=== PATIENT | female | born 1945 | race Caucasian/White ===

== ENCOUNTER 2017-12-04 09:29 | Outpatient (CLI) | payer MEDICARE | END 2017-12-04 09:30 | disposition home or self-care (01) | LOC: BICMAMMO 09:29 | PROVIDERS: ATTEND Family Medicine | DX: Z12.31 Encounter for screening mammogram for malignant neoplasm of breast (principal) | CPT/HCPCS: 77063; 77067 ==

== ENCOUNTER 2017-12-15 12:39 | Emergency (ER) | payer MEDICARE | END 2017-12-15 13:39 | disposition home or self-care (01) | LOC: SCSER 12:39 | DX: I10 Essential (primary) hypertension (principal); K21.9 Gastro-esophageal reflux disease without esophagitis; E78.5 Hyperlipidemia, unspecified; Z79.899 Other long term (current) drug therapy | CPT/HCPCS: 99282 ==

== ENCOUNTER 2018-01-08 08:14 | Outpatient (CLI) | payer MEDICARE | END 2018-01-08 08:15 | disposition home or self-care (01) | LOC: BICMAMMO 08:14 | PROVIDERS: ATTEND Family Medicine | DX: N63.20 Unspecified lump in the left breast, unspecified quadrant (principal) | CPT/HCPCS: 76642; 77065; G0279 ==

== ENCOUNTER 2018-05-26 13:45 | Inpatient (IN) | payer MEDICARE ==
[~2018-05-26 13:45] MED LIST: Iopamidol 370 76% 100 ML VIAL ONE
[2018-05-26 15:04] LABS: Bilirubin Negative (Negative); Blood, Urine Negative (Negative); Clarity Clear (Clear); Glucose, Urine (Dipstick) Negative (Negative); Leukocyte Negative (Negative); Nitrite Negative (Negative); Protein, Urine (Dipstick) Negative (Neg-Trace); Urobilinogen 0.2 mg/dL (0.2-1.0)
[2018-05-26 15:31] LABS: #Basophils 0.1 thou/uL (0.0-0.2); #Eosinphils 0.1 thou/uL (0.0-0.7); #Lymphocytes 2.2 thou/uL (1.20-3.40); #Monocytes 0.5 thou/uL (0.11-0.59); #Neutrophils 4.3 thou/uL (1.40-6.50); %Basophils 1.4 % (0.0-1.0); %Eosinophils 1.3 % (0.0-10.0); %Lymphocytes 30.4 % (21.0-51.0); %Monocytes 7.3 % (0.0-10.0); %Neutrophils 59.6 % (42.0-75.0); Hemoglobin 12.5 g/dL (12.0-16.0); Mean Corpuscular HGB CONC 35.5 g/dL (32.0-36.0); Mean Corpuscular Hemoglobin 30.7 pg (27.0-31.0); Mean Corpuscular Volume 86.3 fL (78.0-98.0); Mean Platelet Volume 7.6 fL (7.4-10.4); Platelet Count 276 thou/uL (130-400); RBC Distribution Width 10.5 % (11.5-14.5); Red Blood Cell (RBC) Count 4.09 mill/uL (4.20-5.40); White Blood Cell (WBC) Count 7.2 thou/uL (4.8-10.8)
[2018-05-26 15:47] LABS: ALT (SGPT) 14 U/L (8-55); AST (SGOT) 22 U/L (5-34); Alkaline Phosphatase 59 U/L (40-150); Anion Gap 13 mmol/L (10-20); BUN (Urea Nitrogen) 12 mg/dL (9.8-20.1); Bilirubin, Total 0.4 mg/dL (0.2-1.2); Calc. Creatinine Clearance 0 mL/min (70-130); Calcium 9.6 mg/dL (7.8-10.44); Carbon Dioxide 24 mmol/L (23-31); Chloride 106 mmol/L (98-107); Estimated GFR-MDRD 63; Globulin 2.8 g/dL (2.4-3.5); Glucose 104 mg/dL (83-110); Lipase 24 U/L (8-78); Potassium 3.9 mmol/L (3.5-5.1); Protein, Total 6.8 g/dL (6.0-8.3); Sodium 139 mmol/L (136-145)
--- NOTE | 2018-05-26 15:49 | RAD ---
CHEST 1 VIEW ABDOMEN 2 VIEWS: HISTORY: Chest and abdomen pain. FINDINGS: Cardiac silhouette and pulmonary vasculature are unremarkable. Mediastinum is midline. No confluent airspace consolidation or evidence of free subdiaphragmatic gas. Gas and stool are apparent within the colon. Nondilated gas-filled loops of small bowel are present within the upper abdomen with air fluid level slightly differential on the upright view. No evidence of free subdiaphragmatic gas. Opaque coils and sutures are evidence of postoperative changes throug hout the abdomen. IMPRESSION: Postoperative changes. Nonspecific bowel gas pattern. POS: [facility]
[2018-05-26] MEDS ORDERED: Ondansetron HCl/PF 4 MG/2 ML Vial ONE ×2 (15:55→22:59)
--- NOTE | 2018-05-26 16:06 | ULT ---
RIGHT UPPER QUADRANT ULTRASOUND: 05/26/18 HISTORY: Abdominal pain. FINDINGS: The liver, pancreas, and right kidney appear normal. The gallbladder is contracted and cannot be satisfactorily evaluated. The patient states having a asim l before coming to the Emergency Room. The common duct measures 7 mm in diameter. No free fluid is seen in Dorado's pouch. IMPRESSION: Contracted gallbladder. Recommend repeating the exam in a fasting state. POS: [facility]
[2018-05-26] MEDS ORDERED: hydrALAZINE 20 MG/ML VIAL SLOW IVP PRN (19:26)
[2018-05-26] MEDS ORDERED: Lorazepam 2 MG/ML VIAL SLOW IVP PRN (19:26)
[2018-05-26] MEDS ORDERED: Morphine 4 MG/ML Carpuject IVP PRN (19:26)
[2018-05-26] MEDS ORDERED: Ketorolac Tromethamine 30 MG/ML VIAL IVP PRN (19:29)
[2018-05-26] MEDS ORDERED: Acetaminophen 1,000 MG in Premix Bag 1 BAG IVPB PRN (19:29)
[2018-05-26] MEDS ORDERED: cefOXitin 2 GM in Sodium Chloride 0.9% 100 ML IVPB SCH (19:30)
[2018-05-26] MEDS ORDERED: Acetaminophen 1,000 MG in Premix Bag 1 BAG IVPB SCH (19:30)
[2018-05-26] MEDS ORDERED: Ketorolac Tromethamine 30 MG/ML VIAL IVP SCH (19:30)
--- NOTE | 2018-05-26 19:44 | CT ---
CT ABDOMEN AND PELVIS WITH CONTRAST: 05/26/18 HISTORY: Abdominal pain. Prior history of appendectomy, hysterectomy and colostomy reversal and breast reducti on. COMPARISON: CT abdomen from 2008. FINDINGS: Mild atelectasis in the lung bases. No pericardial effusion. Gallbladder is unremarkable. Liver is un remarkable. Spleen is unremarkable as well as the pancreas. Prior ventral hernia repair. Small volume free fluid in the pelvis. There is suture along the sigmoid colon. There is some mildly distended loops of small bowel in the mid abdomen measuring up to 3 cm. There is abrupt termination o f mildly distended to collapsed bowel in the left upper quadrant of the abdomen, series 2, image 40, through what appears to an internal hernia through mesentery. This is best seen on series 602, image 47. Small volume free fluid in the pelvis. Small volume fluid in the left pericolic gutter. Moderate degenerative changes of the lower lumbar spine. IMPRESSION: Evidence of low grade small bowel obstruction with transition point in the left upper quadrant of the abdomen through what appears to be an internal hernia best seen on coronal image 46-51. Small bowel loops measure up to 3 cm. There is also some small volume free fluid in the pelvis which may be seque la of congestive changes and loss of small bowel wall integrity. POS: [facility]
--- NOTE | 2018-05-26 19:49 | HP ---
DATE OF ADMISSION: 05/26/2018 HISTORY OF PRESENT ILLNESS: Kalli Falcon is a 72-year-old female who presents to [facility] Emergency Room for acute onset of abdominal pain. Dr. Murphy saw her. She is hemodynamically stable . She had been complaining of abdominal pain and bloating for the past month. This pain became more severe after eating. She had some pain in her back, but thinks that it is by lying on the emergency room bed. She does have occasional pain in her back. She has not had any vomiting, although had so me nausea when ingesting the oral contrast for the CAT scan. She initially had an ultrasound that re vealed a contracted gallbladder without significant findings. She subsequently had a plain abdominal x-rays, which were unrevealing. CAT scan of the abdomen and pelvis was obtained revealing suggestio n of an internal hernia with some mesenteric defect with some distended bowel loops. I was called at approximately 7:15 p.m. Her abdomen was soft and nontender, although slightly distended and tympani tic. NG tube was placed, evacuating approximately 800 mL of gastric contents. Her laboratory studie s were normal with a white count of 7, hemoglobin of 12 and her basic metabolic profile and liver fun ction tests that were normal. ALLERGIES: None. TOBACCO: None. ALCOHOL: None. MEDICATIONS: At home, Benadryl at bedtime, simvastatin 20 mg at bedtime, multivitamins daily, Mobic 7.5 mg a day, losartan 100 mg a day, hydrochlorothiazide 6.25 mg a day, glucosamine daily, calcium ca rbonate daily. PRIMARY CARE PHYSICIAN: Raul Bocanegra D.O. Note, colonoscopy 11/2016, Dr. Pham, normal. PAST SURGICAL HISTORY: Breast reduction surgery, total abdominal hysterectomy, bilateral salpingo-oo phorectomy at [facility]. She had a colon resection with colostomy and Trinity' s pouch for diverticulitis. She subsequently underwent colostomy reversal at [facility] by Dr. Santos. She subsequently suffered some wound problems from a suture sinus, having that explored , resecting the suture sinus and closing the fascial defect with permanent sutures. She subsequently presented with a large incisional hernia, undergoing laparoscopic mesh repair of a large sheet of me sh. Since that time, she has not had any problems with her hernia. On this occasion, she requests a nother surgeon. Nasal surgery for deviated septum. Breast reduction surgery as stated above. SOCIAL HISTORY: The patient is retired. Her is also retired. PAST MEDICAL HISTORY: Sleep apnea, elevated cholesterol. She has had problems with some loose stool s over the past year and has asked if this current problem she is experiencing could be related to th at. History of sleep apnea, uses a CPAP at home. History of hypertension and hyperlipidemia. FAMILY HISTORY: Noncontributory. REVIEW OF SYSTEMS: [place] point noncontributory. PHYSICAL EXAMINATION: VITAL SIGNS: Blood pressure 120/74, respiratory rate 18. HEAD, EARS, EYES, NOSE AND THROAT: Unremarkable. LUNGS: Clear to auscultation. CARDIAC: Regular rate and rhythm without murmur or gallop. ABDOMEN: Soft, mildly distended, nontympanitic. No incisional hernias appreciated. No guarding, no rebound, no tenderness whatsoever. EXTREMITIES: Unremarkable. No ankle edema. Palpable pulses. NEUROLOGIC: Intact. ASSESSMENT AND PLAN: 1. Abdominal pain. CAT scan suggesting internal hernia. We will plan admission to the hospital and NG tube to suction. IV fluids. Repeat abdominal x-rays in the morning. Plan laparoscopy, possible laparotomy under general anesthesia and TAP block tomorrow. Risk of infection, bleeding, reoperatio n, possibilities of a laparotomy with adhesiolysis, possibly requiring bowel resection discussed with the patient. Risk and benefits discussed, she consents. 2. Hypertension. 3. Sleep apnea.
[2018-05-27] MEDS: Lactated Ringer's 1,000 ML IV SCH ×5 (02:49→22:10)
[2018-05-27] MEDS: Enoxaparin Sodium 40 MG/0.4 ML SYRINGE SC SCH ×2 (02:49→21:29)
[2018-05-27] MEDS: Famotidine/PF 20 mg/2ml Vial SLOW IVP SCH ×3 (02:50→21:29)
[2018-05-27] MEDS: Ondansetron HCl/PF 4 MG/2 ML Vial IVP PRN ×2 (03:50→10:16)
[2018-05-27 08:20] VITALS: BMI 34.0
[2018-05-27] MEDS ORDERED: PHENYLEPHRINE-NS 100 MCG/ML 10 ML SYRINGE ONE (10:03)
[2018-05-27] MEDS ORDERED: Succinylcholine Chloride 20 MG/ML 10 ml SYRINGE FS ONE (10:03)
[2018-05-27] MEDS ORDERED: Lidocaine 1% PF 5 ML VIAL ONE (10:03)
[2018-05-27] MEDS ORDERED: PROPOFOL 200 MG/20 ML VIAL ONE (10:03)
[2018-05-27] MEDS ORDERED: Ondansetron HCl/PF 4 MG/2 ML Vial ONE (10:03)
[2018-05-27] MEDS ORDERED: Dexamethasone 20 MG/5 ML VIAL ONE (10:03)
[2018-05-27] MEDS ORDERED: Ketorolac Tromethamine 30 MG/ML VIAL ONE (10:03)
--- NOTE | 2018-05-27 11:53 | RAD ---
ABDOMEN TWO VIEWS: 05/27/2018 HISTORY: Follow up small bowel obstruction. COMPARISON: 05/26/2018 FINDINGS: A small amount of residual contrast is seen within the colon, related to recent CT examination. A ve ry small amount of contrast is seen within the region of the stomach, as well as in the urinary bladd er, also from prior contrast exam. A nasogastric tube is noted in place with the tip overlying the f undus of the stomach. Post surgical changes of the abdomen are again seen. There are a few mildly d ilated loops of small bowel seen within the left upper quadrant of the abdomen, which were also seen on the recent CT exam. Degenerative changes are seen in the spine. There is a rounded area of incre ased density overlying the right upper quadrant, which is probably related to contrast within the gal lbladder. IMPRESSION: 1. Dilated loops of small bowel within the left upper quadrant with suggestion of a differential air -fluid level. This may be related to a partial small bowel obstruction. There is contrast seen with in the colon. 2. Post surgical changes of the abdomen and pelvis. POS: [facility]
[2018-05-27] MEDS ORDERED: cefOXitin 2 GM VIAL ONE (15:07)
[2018-05-27] MEDS ORDERED: Sodium Chloride 0.9% 100 ML ONE (15:07)
[2018-05-27] MEDS ORDERED: Bupivacaine HCl 0.5%/Epinephrine 1:200,000/PF 30 ml Vial ONE (15:38)
[2018-05-27] MEDS ORDERED: Fentanyl 100 MCG/2 ML VIAL ONE ×2 (18:35→19:27)
[2018-05-27] MEDS ORDERED: Dexmedetomidine 200 MCG/2 ML VIAL ONE (18:39)
[2018-05-27] MEDS ORDERED: HYDROmorphone 2 MG/ML VIAL ONE (19:27)
[2018-05-27] MEDS ORDERED: Promethazine HCl 25 MG/ML VIAL SLOW IVP PRN (20:46)
[2018-05-27] MEDS ORDERED: Ondansetron HCl/PF 4 MG/2 ML Vial IVP PRN (20:46)
[2018-05-27] MEDS ORDERED: Promethazine HCl 25 MG/ML VIAL IM PRN (20:46)
[2018-05-27] MEDS ORDERED: HYDROmorphone 2 MG/ML VIAL SLOW IVP PRN (20:46)
[2018-05-27] MEDS: Carvedilol 6.25 MG TAB PO SCH (21:28)
[2018-05-27] MEDS: Acetaminophen 1,000 MG in Premix Bag 1 BAG IVPB SCH (23:23)
--- NOTE | 2018-05-28 05:13 | OP ---
PREOPERATIVE DIAGNOSIS: Small-bowel obstruction secondary to adhesions. POSTOPERATIVE DIAGNOSIS: Small-bowel obstruction secondary to adhesions. PROCEDURES: Laparoscopic video adhesiolysis, release of adhesive band and bowel obstruction, decompr ession. SURGEON: Yonatan Zendejas M.D. ANESTHESIA: General. Local 0.5% Marcaine with epinephrine, 20 mL PROCEDURE IN DETAIL: The patient was taken to the operating room where under general anesthesia, Fol ey catheter was placed at the beginning of the procedure, removed at the end. Abdomen was prepared w ith ChloraPrep, draped in routine fashion. Patient had a prior open colostomy reversal and mesh repa ir of a ventral hernia. Left lateral subcostal incision was made. Pneumoperitoneum to 50 mmHg was o btained with the Veress needle, replacing with a 5 port. I then placed video laparoscope and I could see within the abdominal cavity with the adhesions, I did find a right lower quadrant area before th e abdominal wall was free of adhesions and local anesthetic infiltrated into the skin and subcutaneou s tissue and 5 port placed. Video laparoscope moved to the right lower quadrant port. I then looked at the right lateral abdominal wall and there was an area of adhesion free area in the right subcost al area and an incision was made at the right subcostal and a 5-mm port was placed and LigaSure used for a laparoscopic adhesiolysis and another 5-mm port was placed in the lateral mid abdominal area, a nd then was able to take down adhesions, freeing adhesions from the mesh. Once this was accomplished , I could identify the transverse colon. There was dilated small bowel proximally. This was followe d up into the left upper quadrant where there was an adhesive band causing the bowel obstruction. Th is was taken down with the LigaSure release. I then looked in the right lower quadrant and identifie d the cecum. There were some adhesions in the pelvis. They were not obstructive and adhered to deco mpress small bowel. Small bowel was followed more proximally and these adhesions were not taken down . The small bowel was free of adhesions up to the dilated portion of the bowel which was decompressi ng due to the release of the adhesive obstructive band. At this point, good hemostasis was noted. I rrigant and pneumoperitoneum evacuated. All instruments were removed. All skin incisions were appro ximated with interrupted subdermal 4-0 Monocryl and DermaGlue applied.
[2018-05-28 05:22] LABS: #Lymphocytes 1.1 thou/uL (1.20-3.40); #Monocytes 0.3 thou/uL (0.11-0.59); #Neutrophils 9.1 thou/uL (1.40-6.50); %Basophils 0.1 % (0.0-1.0); %Eosinophils 0.1 % (0.0-10.0); %Lymphocytes 10.7 % (21.0-51.0); %Neutrophils 86.2 % (42.0-75.0); Hemoglobin 12.5 g/dL (12.0-16.0); Mean Corpuscular HGB CONC 34.3 g/dL (32.0-36.0); Mean Corpuscular Hemoglobin 32.1 pg (27.0-31.0); Mean Corpuscular Volume 93.5 fL (78.0-98.0); Mean Platelet Volume 7.6 fL (7.4-10.4); Platelet Count 238 thou/uL (130-400); RBC Distribution Width 11.7 % (11.5-14.5); White Blood Cell (WBC) Count 10.6 thou/uL (4.8-10.8)
[2018-05-28] MEDS: Acetaminophen 1,000 MG in Premix Bag 1 BAG IVPB SCH ×2 (05:22→14:54)
[2018-05-28 05:33] LABS: ALT (SGPT) 10 U/L (8-55); AST (SGOT) 18 U/L (5-34); Albumin 3.5 g/dL (3.4-4.8); Alkaline Phosphatase 55 U/L (40-150); Anion Gap 12 mmol/L (10-20); BUN (Urea Nitrogen) 12 mg/dL (9.8-20.1); Bilirubin, Total 0.5 mg/dL (0.2-1.2); Calc. Creatinine Clearance 73 mL/min (70-130); Calcium 8.8 mg/dL (7.8-10.44); Carbon Dioxide 24 mmol/L (23-31); Chloride 103 mmol/L (98-107); Estimated GFR-MDRD 63; Globulin 2.5 g/dL (2.4-3.5); Glucose 140 mg/dL (83-110); Potassium 3.7 mmol/L (3.5-5.1); Sodium 135 mmol/L (136-145)
[2018-05-28] MEDS: Lactated Ringer's 1,000 ML IV SCH ×2 (05:59→14:57)
[2018-05-28] MEDS ORDERED: traMADol HCl 50 MG TAB PO PRN ×2 (07:29)
[2018-05-28] MEDS ORDERED: Ibuprofen 600 MG TAB PO PRN (07:29)
[2018-05-28] MEDS ORDERED: Acetaminophen 500 MG TAB PO PRN (07:29)
[2018-05-28] MEDS: Famotidine/PF 20 mg/2ml Vial SLOW IVP SCH (08:47)
[2018-05-28] MEDS: Carvedilol 6.25 MG TAB PO SCH (08:48)
[2018-05-28] MEDS ORDERED: Losartan 25 MG TAB PO SCH (09:00)
[2018-05-28 09:14] VITALS: BP 147/71; TEMP 97.8
--- NOTE | 2018-05-28 13:37 | PRG ---
DATE OF SERVICE: 05/28/2018 Ms. Falcno is doing well today. She has not had any nausea or vomiting. She tolerated her full liq uids for breakfast and lunch. She has passed flatus. She has had a bowel movement. Her abdominal p ain is resolved. She is having some belching, but no nausea or vomiting. PHYSICAL EXAMINATION: LUNGS: Clear to auscultation. CARDIAC: Regular rate and rhythm without murmur or gallop. ABDOMEN: Soft, nontender. VITAL SIGNS: Temperature 97.8 degrees, heart rate 60, respiratory 22, blood pressure 147/71. LABORATORY: This morning her white count is 10, hemoglobin 12. Basic metabolic profile was normal. ASSESSMENT AND PLAN: Doing well post-laparoscopic adhesiolysis for bowel obstruction. PLAN: Discharge home. Resume home medications and take Tylenol and ibuprofen [id number] as in dicated. Follow up in my office in 2-3 weeks. No lifting restrictions.
--- NOTE | 2018-05-28 20:59 | DIS ---
DATE OF ADMISSION: 05/26/2018 DATE OF DISCHARGE: 05/28/2018 DISCHARGE DIAGNOSIS: Bowel obstruction surgery secondary to adhesive band. DISCHARGE MEDICATIONS: Tylenol, ibuprofen over the counter p.r.n. pain. Resume home medications, Si mvastatin 20 mg at bedtime, losartan 100 mg a.m., carvedilol 1 tab b.i.d., ibuprofen p.r.n., Tylenol p.r.n. for pain. Diet and activity as tolerated. No lifting restrictions. Follow up with Dr. Baldemar cleveland in 2-3 weeks. HISTORY: A 72-year-old female, history of a colostomy, Trinity's pouch for diverticulitis, subseque nt colostomy reversal open, subsequent suture granuloma resection, closure of incisional hernia and a fter that laparoscopic mesh repair of incisional hernia. The patient had acute onset of pain, nausea , and vomiting, presented in the emergency room. CAT scan revealed changes suggestive of obstruction , possible mesenteric defect in left upper quadrant. The patient was hospitalized overnight with NG tube. Her laboratories are normal. The next morning, she was still having pain. Abdominal x-rays r eveal distended loops of bowel in the left upper quadrant, thus she was taken to the operating room f or laparoscopic evaluation and laparoscopic adhesiolysis performed with release of obstructive fatty adhesive band. This relieved bowel obstruction. Postoperatively, she tolerated diet. She will be d ischarged home to resume her home medications and take Tylenol, Advil [id number] for pain. t and activity as tolerated. No lifting restrictions. Follow up in my office in 2-3 weeks.
[2018-05-28] MEDS ORDERED: Atorvastatin Calcium 10 MG TAB PO SCH (21:00)
[2018-05-28] MEDS ORDERED: Simvastatin 20 MG TAB PO SCH (21:00)
[2018-05-28] MEDS ORDERED: Famotidine 20 MG TAB PO SCH (21:00)
== END 2018-05-28 14:58 | disposition home or self-care (01) | DRG 337 ==
LOC: SCSER 13:45 → SJJU 23:27
PROVIDERS: ADMIT Specialist; ATTEND Specialist
PROC: 0DN84ZZ Release Small Intestine, Percutaneous Endoscopic Approach (ICD-10-PCS; principal; 2018-05-27)
PROC: 0KNL4ZZ Release Left Abdomen Muscle, Percutaneous Endoscopic Approach (ICD-10-PCS; 2018-05-27)
DX: K56.50 Intestinal adhesions [bands], unspecified as to partial versus complete obstruction (principal); Z90.710 Acquired absence of both cervix and uterus; G47.30 Sleep apnea, unspecified; E78.00 Pure hypercholesterolemia, unspecified; I10 Essential (primary) hypertension; E78.5 Hyperlipidemia, unspecified
CPT/HCPCS: 36415; 43752; 74019; 74022; 74177; 76705; 80053; 81003; 83605; 83690; 85025; 86850; 86900; 86901; 93005; 96361; 96374; 96375; 96376; J0131; J0360; J0670; J0694; J1100; J1170; J1650; J1885; J2001; J2270; J2405; J2704; J3010; J7050; S0028

== ENCOUNTER 2018-12-09 09:29 | Outpatient (CLI) | payer MEDICARE ==
--- NOTE | 2018-12-10 08:59 | MMO ---
FILMS COMPARED: The present examination has been compared to prior imaging studies performed at [facility] on 05/27/2006, 12/09/2006, 02/21/2009, 04/05/2010, 04/12/2011, 07/17/2012, 08/30/2013, 10/12/2014, 11/09/2015, 11/20/2016, 12/04/2017 and 01/08/2018, and at [facility] on 06/22/2003 and 10/24/2004. MAMMOGRAM FINDINGS: There are scattered fibroglandular densities. No suspicious calcifications or masses are seen. Post op change in the right breast is stable. Benign calcifications are noted bilaterally. IMPRESSION: FINDINGS IN BOTH BREASTS ARE BENIGN. A ROUTINE FOLLOW-UP MAMMOGRAM IN 1 YEAR IS RECOMMENDED. ACR BI-RADS Category 2 - Benign finding
== END 2018-12-09 09:30 | disposition home or self-care (01) ==
LOC: BICMAMMO 09:29
PROVIDERS: ATTEND Family Medicine
DX: Z12.31 Encounter for screening mammogram for malignant neoplasm of breast (principal)
CPT/HCPCS: 77063; 77067

== ENCOUNTER 2019-02-09 10:33 | Outpatient (CLI) | payer MEDICARE | END 2019-02-09 10:34 | disposition home or self-care (01) | LOC: CTENTCT 10:33 | PROVIDERS: ATTEND Specialist | DX: R51 Headache (principal); R22.0 Localized swelling, mass and lump, head | CPT/HCPCS: 70486 ==

== ENCOUNTER 2019-06-30 18:31 | Observation (INO) | payer MEDICARE ==
[2019-06-30 19:17] LABS: #Basophils 0.1 thou/uL (0.0-0.2); #Eosinphils 0.1 thou/uL (0.0-0.7); #Lymphocytes 2.6 thou/uL (1.20-3.40); #Monocytes 0.7 thou/uL (0.11-0.59); #Neutrophils 7.1 thou/uL (1.40-6.50); %Eosinophils 0.9 % (0.0-10.0); %Lymphocytes 24.8 % (21.0-51.0); %Monocytes 6.4 % (0.0-10.0); %Neutrophils 66.9 % (42.0-75.0); Hemoglobin 12.8 g/dL (12.0-16.0); Mean Corpuscular HGB CONC 34.6 g/dL (32.0-36.0); Mean Corpuscular Hemoglobin 32.2 pg (27.0-31.0); Mean Corpuscular Volume 92.9 fL (78.0-98.0); Mean Platelet Volume 6.5 fL (7.4-10.4); Platelet Count 246 thou/uL (130-400); RBC Distribution Width 12.5 % (11.5-14.5); Red Blood Cell (RBC) Count 3.99 mill/uL (4.20-5.40); White Blood Cell (WBC) Count 10.6 thou/uL (4.8-10.8)
[2019-06-30 19:31] LABS: ALT (SGPT) 18 U/L (8-55); AST (SGOT) 22 U/L (5-34); Alkaline Phosphatase 48 U/L (40-110); Anion Gap 15 mmol/L (10-20); BUN (Urea Nitrogen) 16 mg/dL (9.8-20.1); Bilirubin, Total 0.5 mg/dL (0.2-1.2); Calc. Creatinine Clearance 0 mL/min (70-130); Calcium 9.4 mg/dL (7.8-10.44); Carbon Dioxide 22 mmol/L (23-31); Chloride 101 mmol/L (98-107); Estimated GFR-MDRD 62; Globulin 2.8 g/dL (2.4-3.5); Glucose 93 mg/dL (83-110); Potassium 3.9 mmol/L (3.5-5.1); Protein, Total 6.8 g/dL (6.0-8.3); Sodium 134 mmol/L (136-145)
--- NOTE | 2019-06-30 19:39 | RAD ---
SINGLE VIEW OF THE CHEST: 06/30/19 COMPARISON: None. HISTORY: Anxiety and chest pain. FINDINGS: Single view of the chest shows a normal sized cardiomediastinal silhouette. There is no evidence of c onsolidation, mass, or pleural effusion. The bones are unremarkable. IMPRESSION: No evidence of acute cardiopulmonary disease. POS: [facility]
[2019-06-30] MEDS ORDERED: Nitroglycerin 2% Ointment 1 INCH/1 GM Packet ONE (20:05)
[2019-06-30] MEDS ORDERED: Aspirin Chewable 81 MG TAB ONE (20:05)
[2019-06-30] MEDS ORDERED: Lorazepam 2 MG/ML VIAL ONE (21:15)
[2019-06-30 22:46] VITALS: BMI 27.9
[2019-06-30 23:37] LABS: Troponin I Less than 0.010 ng/mL (< 0.028)
[2019-07-01] MEDS ORDERED: traMADol HCl 50 MG TAB PO PRN (01:00)
[2019-07-01] MEDS ORDERED: Nitroglycerin 0.4 MG TAB (25 Tab Bottle) PO PRN (01:00)
[2019-07-01] MEDS ORDERED: ALPRAZolam 0.25 MG TAB PO PRN (01:00)
[2019-07-01] MEDS ORDERED: hydrALAZINE 20 MG/ML VIAL SLOW IVP PRN (01:00)
[2019-07-01] MEDS ORDERED: Ondansetron ODT 4 MG TAB PO PRN (01:00)
[2019-07-01] MEDS ORDERED: Ondansetron PF 4 MG/2 ML Vial IVP PRN (01:00)
[2019-07-01] MEDS ORDERED: Acetaminophen 500 MG TAB PO PRN (01:00)
[2019-07-01 01:24] LABS: Troponin I Less than 0.010 ng/mL (< 0.028)
--- NOTE | 2019-07-01 04:29 | HP ---
PRIMARY CARE PROVIDER: Raul Bocanegra DO CHIEF COMPLAINT: Chest pain. HISTORY OF PRESENT ILLNESS: This is a 73-year-old female, who presents to [facility] Emergency Department complaining of chest pain over the last 3 to 4 days. The patient complains of intermittent substernal chest pain with pressure and squeezing sensation, which began approximately 3 to 4 days prior to this evaluation. The patient took [id number] antacids with mild relief of her symptoms. The patient does admit that she was recently placed on clindamycin after undergoing a root canal, which she is taking consistently. The patient denies any recent trauma, injury, travel history, fever, chills, or prominent cough. The patient states she has undergone cardiac stress testing approximately 25 years prior to this evaluation with negative findings. The patient denies the use of daily aspirin and denies any other change to her medication regimen. The patient does admit to increased stressors at home due to her elderly mother having issues of health and being hospitalized. In the emergency room, the patient underwent general evaluation with serial troponins negative x2. The patient received lorazepam, transdermal nitroglycerin, and aspirin 324 mg. EKG showed sinus bradycardia without acute changes. PAST MEDICAL HISTORY: 1. Gastroesophageal reflux disease. 2. Hyperlipidemia. 3. Hypertension. PAST SURGICAL HISTORY: 1. Status post breast reduction. 2. Status post right shoulder repair. 3. Status post appendectomy. 4. Status post colostomy with reversal. 5. Status post hysterectomy. 6. Status post tonsillectomy. CURRENT MEDICATIONS: 1. Alprazolam 0.25 mg p.o. b.i.d. p.r.n. 2. Buspar 5 mg p.o. t.i.d. 3. Carvedilol 6.25 mg p.o. b.i.d. 4. Cetirizine 10 mg p.o. daily. 5. Clindamycin 150 mg p.o. t.i.d. 6. Colestid. 7. Estradiol 1 application vaginally twice a week. 8. Losartan 100 mg p.o. q.a.m. 9. Simvastatin 20 mg p.o. at bedtime. 10. Tramadol 50 mg p.o. t.i.d. p.r.n. ALLERGIES: NO KNOWN DRUG ALLERGIES. FAMILY HISTORY: Father with history of myocardial infarction at 88 years of age. SOCIAL HISTORY: The patient resides in [place], [place]. Retired. . No current alcohol, tobacco, or illicit drug use. REVIEW OF SYSTEMS: CONSTITUTIONAL: Negative for weight loss or gain, ability to conduct usual activities. SKIN: Negative for rash, itching. EYES: Negative for double vision, pain. ENT/MOUTH: Negative for nose bleeding, neck stiffness, pain, tenderness. CARDIOVASCULAR: Negative for palpitations, dyspnea on exertion, orthopnea. RESPIRATORY: Negative for shortness of breath, wheezing, cough, hemoptysis, fever or night sweats. GASTROINTESTINAL: Negative for poor appetite, abdominal pain, heartburn, nausea, vomiting, constipation, or diarrhea. GENITOURINARY: Negative for urgency, frequency, dysuria, nocturia. MUSCULOSKELETAL: Negative for pain, swelling. NEUROLOGIC/PSYCHIATRIC: Negative for anxiety, depression. ALLERGY/IMMUNOLOGIC: Negative for skin rash, bleeding tendency. Otherwise negative except as stated per HPI. PHYSICAL EXAMINATION: VITAL SIGNS: On admission, blood pressure 151/66, pulse 52, respiratory rate 18, temperature 97.7 degrees Fahrenheit, O2 saturation 98% on room air. GENERAL APPEARANCE: This is a 73-year-old female, alert and oriented x3, pleasant, in no acute distress. HEENT: Pupils are equal, round, reactive to light and accommodation. Extraocular muscles are intact. No scleral icterus. No conjunctival injection. Nares are patent. OP is clear. Teeth in good repair. NECK: Supple. No cervical adenopathy. No thyromegaly. No carotid bruits. No JVD appreciated. Cervical spine with full active and passive range of motion. No meningeal signs noted. CHEST: Lungs are clear to auscultation bilaterally. CARDIOVASCULAR: S1 and S2 without noted murmur, rub, or gallop. ABDOMEN: Rounded, soft, nontender, and nondistended. Bowel sounds are positive in all 4 quadrants. There is no hepatosplenomegaly. No abdominal bruits. No rebound or guarding appreciated. EXTREMITIES: Warm and dry with fair turgor. No clubbing, cyanosis, or asymmetric edema appreciated. Pulses are palpable distally at the dorsalis pedis, posterior tibial, and popliteal arteries bilaterally. Capillary refill less than 2 seconds. NEUROLOGIC: Cranial nerves 2 through 12 are grossly intact. No focal or lateralizing signs appreciated. PERTINENT LABORATORY AND X-RAY FINDINGS: Sodium 134, potassium 3.9, chloride 101, CO2 of 22, BUN 16, creatinine 0.89, estimated GFR 62. LFTs within normal limits. Troponin I negative x2. BNP 110. CBC showed a white blood cell count of 10.6, hemoglobin 13, hematocrit 37, platelet count 246, with normal differential. Portable chest x-ray dated 06/30/2019, showed no acute cardiopulmonary process. EKG dated 06/30/2019 by my interpretation shows sinus bradycardia with heart rates in the 50s. Normal R-wave progression noted in the precordial leads. Normal axis. No acute ST-T wave changes appreciated. ASSESSMENT/PLAN: 1. Chest pain. We will proceed with Cardiolite stress testing. Await third cardiac biomarker. Continue aspirin 325 mg daily. Check fasting lipid profile. 2. Esophagitis. Suspected given patient's recent clindamycin prescription. We will hold clindamycin approximately 24-48 hours and monitor clinical response. Continue Pepcid 20 mg p.o. b.i.d. 3. Hypertension. Resume home antihypertensive regimen and monitor clinical response. 4. Anxiety. Continue Xanax 0.25 mg p.o. b.i.d. p.r.n. 5. BuSpar 5 mg p.o. t.i.d. 6. Prophylaxis. SCDs while in bed. Pepcid 20 mg p.o. b.i.d. 7. Code status is full. Surrogate medical decision maker is the patient's spouse. Job ID: [id number]
[2019-07-01 05:54] LABS: Eosinophils 1 % (0-10); Hemoglobin 12.4 g/dL (12.0-16.0); Lymphocytes 30 % (21-51); MDiff Complete? YES; Mean Corpuscular HGB CONC 34.1 g/dL (32.0-36.0); Mean Corpuscular Hemoglobin 33.1 pg (27.0-31.0); Mean Corpuscular Volume 96.9 fL (78.0-98.0); Mean Platelet Volume 7.1 fL (7.4-10.4); Monocytes 3 % (0-10); Neutrophil 65 % (42-75); Platelet Count 261 thou/uL (130-400); Platelet Morphology Comment Appears Adequate; RBC Distribution Width 12.5 % (11.5-14.5); Reactive Lymphocytes 1 % (0-10); Red Blood Cell (RBC) Count 3.76 mill/uL (4.20-5.40); White Blood Cell (WBC) Count 9.6 thou/uL (4.8-10.8)
[2019-07-01 06:07] LABS: Anion Gap 9 mmol/L (10-20); BUN (Urea Nitrogen) 14 mg/dL (9.8-20.1); Calc. Creatinine Clearance 66 mL/min (70-130); Calcium 9.3 mg/dL (7.8-10.44); Carbon Dioxide 27 mmol/L (23-31); Cardiac Risk 2.2 (Less than 4.5); Chloride 102 mmol/L (98-107); Cholesterol 177 mg/dl (< 200 Desired); Estimated GFR-MDRD 55; Glucose 96 mg/dL (83-110); HDL Cholesterol 82 mg/dL (>60 Neg Risk); LDL Cholesterol, Calculated 74 mg/dL; Sodium 134 mmol/L (136-145); Triglycerides 105 mg/dL (Less than 150)
[2019-07-01 07:43] VITALS: TEMP 98.6
[2019-07-01] MEDS ORDERED: Carvedilol 6.25 MG TAB PO SCH (08:00)
[2019-07-01] MEDS ORDERED: Losartan 25 MG TAB PO SCH (09:00)
[2019-07-01] MEDS ORDERED: Loratadine 10 MG TAB PO SCH (09:00)
[2019-07-01] MEDS ORDERED: Famotidine 20 MG TAB PO SCH (09:00)
[2019-07-01] MEDS ORDERED: Aspirin 325 mg Enteric Coated Tablet PO SCH (09:00)
[2019-07-01] MEDS ORDERED: busPIRone HCl 5 MG TAB PO SCH (09:00)
[2019-07-01] MEDS ORDERED: Clindamycin 150 MG CAP PO SCH (09:00)
[2019-07-01 11:31] VITALS: BP 170/74
--- NOTE | 2019-07-01 13:01 | NM ---
MYOCARDIAL PERFUSION SCAN WITH SPECT IMAGING: HISTORY: Chest pain. TECHNIQUE: Examination was performed using 29.5 millicuries of 99m technetium sestamibi on the stress and 10.6 m illicuries on the resting imaging. FINDINGS: This shows a small defect in the apex region of the heart, not definitely different between the stres s and rest views. Wall motion: There is symmetric contractility of the ventricle. left ventricular ejection fraction: The calculated left ventricular ejection fraction is 69%. IMPRESSION: Suggestion of a small apical scar. No ischemic change. POS: [facility]
[2019-07-01] MEDS ORDERED: Atorvastatin Calcium 10 MG TAB PO SCH (21:00)
[2019-07-02] MEDS ORDERED: Estradiol 0.01% Vaginal Cream 42.5 gm Tube VAG SCH (09:00)
--- NOTE | 2019-07-02 13:42 | DIS ---
DATE OF ADMISSION: 06/30/2019 DATE OF DISCHARGE: 07/01/2019 DISCHARGE DIAGNOSES: 1. Chest pain, likely due to esophagitis. 2. Recent root canal, requiring antibiotics. 3. Hypertension. 4. Anxiety. HISTORY OF PRESENT ILLNESS: This patient is a 73-year-old female, who had been undergoing some dental procedures including a root canal. She was placed on some clindamycin. Subsequently, she had developed some substernal chest pain for 3 to 4 days. The patient presented to the emergency department. She was given aspirin, had a negative workup including no ischemic changes on EKG and negative troponins. The patient was subsequently placed on observation. HOSPITAL COURSE: The patient had serial troponins, which remained negative. She underwent a stress test, which was also negative. Her clindamycin had been held and her symptoms had actually improved while in the observation stay with the stress test revealing only a small apical scar with no ischemic change, felt to likely be artifactual in nature. The patient was felt to be stable for discharge to home. Of note, her ejection fraction was also at 69%. I explained the situation with the patient at length and she was comfortable with discharge and changing her antibiotics. PHYSICAL EXAMINATION: VITAL SIGNS: On the day of discharge, temperature is 98.6, pulse 67, respirations 16, O2 saturations 99% on room air, and BP is 170/74. GENERAL: She is awake, alert, oriented, pleasant, and cooperative. HEART: Regular rate and rhythm without murmurs, gallops, or rubs. LUNGS: Clear to auscultation bilaterally with good chest wall expansion and air exchange. ABDOMEN: Soft, nontender, and nondistended. Positive bowel sounds. No masses. No organomegaly. EXTREMITIES: No cyanosis, clubbing, or edema. DISPOSITION: The patient is discharged to home. ACTIVITY: She will have her activity as tolerated. DIET: She will stay on a heart healthy diet. MEDICATIONS: Include Augmentin 875 one p.o. b.i.d. She is also encouraged to consider a probiotic. She will continue home medicines including; 1. Simvastatin. 2. Losartan. 3. Carvedilol. 4. Acetaminophen. 5. Estradiol. 6. Tramadol. 7. Cetirizine. 8. Alprazolam. 9. Buspirone. 10. Colestid. FOLLOWUP: She can follow up with Dr. Raul Bocanegra. She can return to the hospital should she have any need to do so. Job ID: [id number]
--- NOTE | 2019-07-08 08:52 | STRESS ---
Acquisition Time: 2019-07-01 09:28:10 Total Exercise Time: 00:04:31 Test Indications: CHEST PAIN Medications: Protocol: MONALISA Max HR: 142 BPM 95% of Pred: 148 BPM Max BP: 122/082 mmHG Max Work Load: 7.0 METS RESTING ECG: SINUS BRADYCARDIA AT 52 BPM WITH NON-SPECIFIC ST SEGMENT CHANGES SYMPTOMS: DYSPNEA ON EXERTION NORMAL BP RESPONSE ECTOPY: NONE ECG STRESS: 1.0-1.[address] DEPRESSION INTERPRETATION: INDETERMINATE GXT/AWAIT NUCLEAR IMAGES FOR DEFINITIVE DIAGNOSIS Confirmed by FRANCISCO WESLEY ([id number]) on 07/08/2019 8:51:54 AM Referred By: MD Ga RDZ Confirmed By:FRANCISCO WESLEY
== END 2019-07-01 13:54 | disposition home or self-care (01) ==
LOC: SCSER 18:31 → 2SW 20:43
PROVIDERS: ADMIT Internal Medicine; ATTEND Internal Medicine
DX: R07.9 Chest pain, unspecified (principal); K21.0 Gastro-esophageal reflux disease with esophagitis; I10 Essential (primary) hypertension; F41.9 Anxiety disorder, unspecified; Z79.899 Other long term (current) drug therapy
CPT/HCPCS: 71045; 78452; 80048; 80053; 80061; 83880; 84484 ×3; 85007; 85025; 85027; 93005; 93017; 94760; 96374; 99285; A9500; 36415; G0378; J2060

== ENCOUNTER 2020-06-07 09:51 | Outpatient (CLI) | payer MEDICARE ==
--- NOTE | 2020-06-07 13:08 | MMO ---
Bilateral MAMMO Bilat Screen [facility]. CLINICAL HISTORY: Patient is 74 years old and is seen for screening. The patient has no family history of breast cancer. The patient has no personal history of cancer. The patient has a history of bilateral Breast reduction in July,. VIEWS: The views performed were: bilateral craniocaudal with tomosynthesis and bilateral mediolateral oblique with tomosynthesis. FILMS COMPARED: The present examination has been compared to prior imaging studies performed at [facility] on 12/04/2017, 01/08/2018 and 12/09/2018. This study has been interpreted with the assistance of computer-aided detection. MAMMOGRAM FINDINGS: There are scattered fibroglandular densities. Benign calcifications are noted bilaterally. There are stable post-operative changes in the right breast. There are no suspicious masses, suspicious calcifications, or new areas of architectural distortion. IMPRESSION: THERE IS NO MAMMOGRAPHIC EVIDENCE OF MALIGNANCY. A ROUTINE FOLLOW-UP MAMMOGRAM IN 1 YEAR IS RECOMMENDED. THE RESULTS OF THIS EXAM WERE SENT TO THE PATIENT. ACR BI-RADS Category 2 - Benign finding MAMMOGRAPHY NOTE: 1. A negative mammogram report should not delay a biopsy if a dominant of clinically suspicious mass is present. 2. Approximately 10% to 15% of breast cancers are not detected by mammography. 3. Adenosis and dense breasts may obscure an underlying neoplasm. Reported by: SÁNCHEZ SIMON MD Electonically Signed: [id number]
== END 2020-06-07 09:52 | disposition home or self-care (01) ==
LOC: BICMAMMO 09:51
PROVIDERS: ATTEND Family Medicine
DX: Z12.31 Encounter for screening mammogram for malignant neoplasm of breast (principal); Z98.890 Other specified postprocedural states
CPT/HCPCS: 77063; 77067

== ENCOUNTER 2021-01-12 10:09 | Outpatient (CLI) | payer MEDICARE | END 2021-01-12 10:10 | disposition home or self-care (01) | LOC: BICRAD 10:09 | PROVIDERS: ATTEND Family Medicine | DX: M89.319 Hypertrophy of bone, unspecified shoulder (principal); R22.1 Localized swelling, mass and lump, neck; M19.011 Primary osteoarthritis, right shoulder ==

== ENCOUNTER 2024-06-14 14:21 | Outpatient (CLI) | payer MEDICARE ==
[2024-06-14 15:29] LABS: #Basophils 0.08 10x3/uL (0.0-0.2); %Basophils 1.1 % (0.0-1.0); %Eosinophils 1.8 % (0.0-10.0); %Lymphocytes 32.7 % (21.0-51.0); %Monocytes 7.6 % (0.0-10.0); %Neutrophils 56.4 % (42.0-75.0); Hematocrit 36.1 % (36.0-47.0); Hemoglobin 11.9 g/dL (12.0-16.0); Mean Corpuscular Hemoglobin 31.4 pg (27.0-31.0); Mean Corpuscular Volume 95.3 fL (78.0-98.0); Mean Platelet Volume 9.6 fL (7.4-10.4); Platelet Count 309 10x3/uL (130-400); Red Blood Cell (RBC) Count 3.79 mill/uL (4.20-5.40)
[2024-06-14 15:43] LABS: Anion Gap 13 mmol/L (10-20); BUN (Urea Nitrogen) 19 mg/dL (9.8-20.1); Calc. Creatinine Clearance 0 mL/min (70-130); Calcium 9.2 mg/dL (7.8-10.44); Carbon Dioxide 21 mmol/L (23-31); Chloride 106 mmol/L (98-107); Estimated GFR 51; Glucose 86 mg/dL (83-110); Potassium 3.9 mmol/L (3.5-5.1); Sodium 136 mmol/L (136-145)
[2024-06-14 15:46] LABS: INR-International Normal Ratio 0.9; Prothrombin Time 11.9 sec (12.0-14.7)
== END 2024-06-14 14:22 | disposition home or self-care (01) ==
LOC: LABBT 14:21
PROVIDERS: ATTEND Orthopaedic Surgery
DX: Z01.818 Encounter for other preprocedural examination (principal); G56.01 Carpal tunnel syndrome, right upper limb
CPT/HCPCS: 80048; 85025; 85610; 93005; 93010

== ENCOUNTER 2024-07-01 06:54 | Outpatient (CLI) | payer MEDICARE | END 2024-07-01 06:55 | disposition home or self-care (01) | LOC: BICULT 06:54 | PROVIDERS: ATTEND Internal Medicine Nephrology | DX: I13.10 Hypertensive heart and chronic kidney disease without heart failure, with stage 1 through stage 4 chronic kidney disease, or unspecified chronic kidney disease (principal); N18.9 Chronic kidney disease, unspecified; N39.0 Urinary tract infection, site not specified; M19.90 Unspecified osteoarthritis, unspecified site; G47.33 Obstructive sleep apnea (adult) (pediatric); E78.5 Hyperlipidemia, unspecified; K21.9 Gastro-esophageal reflux disease without esophagitis; K57.90 Diverticulosis of intestine, part unspecified, without perforation or abscess without bleeding | CPT/HCPCS: 76770; 93975 ==

== ENCOUNTER 2025-06-17 10:37 | Outpatient (CLI) | payer MEDICARE | END 2025-06-17 10:38 | disposition home or self-care (01) | LOC: BICRAD 10:37 | PROVIDERS: ATTEND Physician Assistant | DX: M46.1 Sacroiliitis, not elsewhere classified (principal); M47.816 Spondylosis without myelopathy or radiculopathy, lumbar region; M41.9 Scoliosis, unspecified | CPT/HCPCS: 72110 ==